=== PATIENT | male | born 1960 | race Caucasian/White ===

== ENCOUNTER 2019-09-15 20:00 | Outpatient (CLI) | payer OTHER, SELFPAY | END 2019-09-15 20:01 | disposition home or self-care (01) | LOC: SLEEP 09-16 09:32 | PROVIDERS: Family Provider Nurse Practitioner Family; Visit Provider Nurse Practitioner Family | DX: G47.33 Obstructive sleep apnea (adult) (pediatric) (principal) | CPT/HCPCS: 95810 ==

== ENCOUNTER 2019-11-26 20:00 | Outpatient (CLI) | payer MEDICARE, BC, SELFPAY | END 2019-11-26 20:01 | disposition home or self-care (01) | LOC: SLEEP 11-27 09:28 | PROVIDERS: Family Provider Nurse Practitioner Family; Visit Provider Nurse Practitioner Family | DX: G47.33 Obstructive sleep apnea (adult) (pediatric) (principal) | CPT/HCPCS: 95811 ==

== ENCOUNTER 2019-12-08 11:21 | Outpatient (CLI) | payer MEDICARE, SELFPAY ==
--- NOTE | 2019-12-08 11:33 | XR_ITS ---
WS: [id number] XR chest 2V* [id number] REASON FOR EXAM: Shortness of breath FINDINGS: Borderline cardiomegaly is noted. The lung das are well aerated. There is no pneumonia, pleural effusion, pulmonary edema, or pneumo thorax. The seventh rib shows a remote fracture similar to the previous exam of June 22, 2018. XR/XR chest 2V* [id number] IMPRESSION: Borderline cardiomegaly.
[2019-12-08 12:01] LABS: Basophils # 0.1 10^3/uL (0.0-0.1); Basophils % 0.9 %; Eosinophils # 0.3 10^3/uL (0.0-0.8); Eosinophils % 3.7 %; Hematocrit 45.8 % (42.0-52.0); Hemoglobin 14.4 g/dL (11.7-16.6); Lymphocytes # 2.3 10^3/uL (0.8-4.8); Mean Corpuscular HGB Conc 31.4 g/dL (30.0-36.0); Mean Corpuscular Hemoglobin 28.4 pg (28.0-34.0); Mean Corpuscular Volume 90.3 fL (80-94); Mean Platelet Volume 10.6 fL (7.4-10.4); Monocytes # 0.6 10^3/uL (0.2-0.9); Monocytes % 7.9 %; Neutrophils # 4.6 10^3/uL (1.8-7.7); Neutrophils % 58.4 %; Nucleated Red Blood Cells % 0 %; Platelet Count 254 10^3/cmm (130-400); Red Blood Count 5.07 10^6/uL (4.1-5.3); Red Cell Distribution Width 13.1 % (12.1-15.1); White Blood Count 7.8 10^3/uL (4.0-10.0)
[2019-12-10 17:30] LABS: Cat Dander (E1) Ige <0.10 kU/L; Cat Dander Class 0; Common Ragweed (Short) (W1) Ig <0.10 kU/L; Dog Dander (E5) Ige <0.10 kU/L; Dog Dander Class 0; Elm (T8) Ige <0.10 kU/L; Elm Class 0; English Plantain (W9) Ige <0.10 kU/L; English Plantain Class 0; Immunoglobulin E 105 kU/L (<OR=114); Immunoglobulin E 99 kU/L (<OR=114); Lamb'S Quarters (Goose Foot) <0.10 kU/L; Lamb'S Quarters Class 0; Maple (Box Elder) (T1) Ige <0.10 kU/L; Maple Class 0; Oak (T7) Ige <0.10 kU/L; Oak Class 0; Ragweeed Class 0; Rough Marsh Elder (W16) Ige <0.10 kU/L; Rough Marsh Elder Class 0
[2019-12-11 18:01] LABS: Alternaria Alternata (M6) Ige <0.10 kU/L; Alternaria Class 0; Bermuda Class 0; Bermuda Grass (G2) Ige <0.10 kU/L; D. Farinae Class 0/1; Dermatophagoides Class 0/1; Dermatophagoides Pteronyssinus 0.13 kU/L; House Dust (Greer) (H1) Ige <0.10 kU/L; House Dust (Hollister- Stier) <0.10 kU/L; House Dust Class 0; Johnson Grass (G10) Ige <0.10 kU/L; Johnson Grass Cl 0; June Grass Class 0; June Grass(Kentucky Blue) (G8) <0.10 kU/L; Meadow Fescue (G4) Ige <0.10 kU/L; Meadow Fescue Class 0; Mucor Racemosus Class 0; Orchard Grass (Cocksfoot) (G3) <0.10 kU/L; Penicillium Class 0; Penicillium Notatum (M1) Ige <0.10 kU/L; Perennial Rye Grass (G5) Ige <0.10 kU/L; Perennial Rye Grass Class 0; Sweet Vernal Class 0; Sweet Vernal Grass (G1) Ige <0.10 kU/L; Timothy Grass (G6) Ige <0.10 kU/L; Timothy Grass Class 0
[2019-12-11 19:50] LABS: Aspergillus Fumigatus, Igg Ab, 49.5 mg/L (<=102)
== END 2019-12-08 11:22 | disposition home or self-care (01) ==
LOC: RAD 11:28
PROVIDERS: PCP Nurse Practitioner Family; Visit Provider Internal Medicine Critical Care Medicine
DX: R06.02 Shortness of breath (principal); J45.909 Unspecified asthma, uncomplicated
CPT/HCPCS: 71046; 82785; 85025; 86003

== ENCOUNTER → 2020-02-04 10:41 | Outpatient (BNVA) | payer MEDICARE, BC, SELFPAY | PROVIDERS: PCP Nurse Practitioner Family; Referring Provider Dermatology; Visit Provider Dermatology | DX: D48.9 Neoplasm of uncertain behavior, unspecified (principal); D18.01 Hemangioma of skin and subcutaneous tissue; D23.30 Other benign neoplasm of skin of unspecified part of face; L73.9 Follicular disorder, unspecified | CPT/HCPCS: 11102; 88304; 88305; 99203; 99204 ==

== ENCOUNTER 2020-02-12 16:21 | Outpatient (CLI) | payer MEDICARE, BC, SELFPAY ==
[2020-02-12 16:28] LABS: Add Urine Microscopic? NO
[2020-02-12 16:36] LABS: Basophils # 0.1 10^3/uL (0.0-0.1); Basophils % 1.1 %; Eosinophils % 10.7 %; Hematocrit 44.9 % (42.0-52.0); Lymphocytes # 2.4 10^3/uL (0.8-4.8); Lymphocytes % 26.7 %; Mean Corpuscular HGB Conc 31.2 g/dL (30.0-36.0); Mean Corpuscular Volume 89.8 fL (80-94); Mean Platelet Volume 11.1 fL (7.4-10.4); Monocytes # 0.7 10^3/uL (0.2-0.9); Neutrophils # 4.72 10^3/uL (1.8-7.7); Neutrophils % 53.2 %; Nucleated Red Blood Cells % 0 %; Platelet Count 252 10^3/cmm (130-400); Red Cell Distribution Width 13.3 % (12.1-15.1); White Blood Count 8.9 10^3/uL (4.0-10.0)
[2020-02-12 17:02] LABS: Bilirubin Urine Neg (NEGATIVE); Blood Urine Neg (Negative); Glucose Urine UA Norm (Normal); Ketones Urine Negative (Negative); Leukocyte Esterase Urine Negative (Negative); Nitrate Urine Negative (Negative); Protein Urine Neg (Negative); Specific Gravity, Urine 1.005 (1.005-1.030); Urine Appearance Clear (CLEAR); Urine Color Straw (Yellow); Urobilinogen Urine Norm (Negative)
[2020-02-12 17:49] LABS: Alanine Aminotransferase 26 U/L (0-41); Albumin Level 4.7 g/dL (3.5-5.2); Alkaline Phosphatase 87 IU/L (40-130); Anion Gap 12.6 (5-19); Aspartate Amino Transferase 18 U/L (0-40); Blood Urea Nitrogen 23 mg/dL (8-23); Carbon Dioxide 28 mmol/L (22-29); Chloride 105 mmol/L (98-107); Chol HDL Ratio 2.85 mg/dL (1.0-5.00); Cholesterol 151 mg/dL (0-200); Globulin 2.7 g/dL (1.3-4.6); Glomerular Filtration Rate 114.6 mL/min (90-130); Glucose 104 mg/dL (65-115); HDL Cholesterol 53 mg/dL (60-100); LDL Cholesterol Calculated 82 mg/dL (50-129); LDL HDL Ratio 1.55 RATIO (0.00-3.22); Osmolality Calculated 289 mOsm/kg (285-295); Potassium 4.6 mmol/L (3.5-5.1); Sodium 141 mmol/L (136-145); Thyroid Stimulating Hormone 0.98 uIU/mL (0.27-4.20); Total Bilirubin 0.5 mg/dL (0.15-1.2); Total Protein 7.4 g/dL (6.6-8.7); Triglycerides 82 mg/dL (0-150)
[2020-02-12 18:21] LABS: Estmated Average Glucose 111; Hemoglobin A1C 5.5 % (4.0-6.0)
[2020-02-12 22:34] LABS: Prostate Specific Antigen 0.694 ng/mL (0-4)
== END 2020-02-12 16:22 | disposition home or self-care (01) ==
LOC: LAB 16:24
PROVIDERS: PCP Nurse Practitioner Family; Visit Provider Nurse Practitioner Family
DX: I10 Essential (primary) hypertension (principal); Z12.5 Encounter for screening for malignant neoplasm of prostate
CPT/HCPCS: 80053; 80061; 81003; 83036; 84153; 84443; 85025

== ENCOUNTER → 2020-07-26 09:05 | Outpatient (BNVA) | payer MEDICARE, SELFPAY | PROVIDERS: PCP Nurse Practitioner Family; Visit Provider Internal Medicine Rheumatology | DX: M19.90 Unspecified osteoarthritis, unspecified site (principal); Z79.899 Other long term (current) drug therapy; Z11.1 Encounter for screening for respiratory tuberculosis; Z11.59 Encounter for screening for other viral diseases; K21.9 Gastro-esophageal reflux disease without esophagitis | CPT/HCPCS: 73130; 73630; 80076; 82306; 82565; 85025; 85651; 86140; 86431; 86480; 86704; 86803; 87340; 99214 ==

== ENCOUNTER 2020-07-26 10:26 | Outpatient (CLI) | payer MEDICARE, SELFPAY ==
--- NOTE | 2020-07-26 10:36 | XR_ITS ---
WS: [id number] LEFT FOOT: 3 VIEW(S) TECHNIQUE: AP, oblique and lateral. HISTORY: Z79.899 - Other fdc (current) drug therapy COMPARISON: None available. No acute fracture or dislocation. Small hooklike osteophytes at the distal first phalanx. Normal tarsal/metatarsal alignment. No soft tissue abnormality or bone destruction. No erosions. Enthesopathy at the Achilles tendon. XR/XR foot LT min 3V* [id number] IMPRESSION: No significant osteoarthritic changes. No erosions.
--- NOTE | 2020-07-26 10:36 | XR_ITS ---
WS: [id number] LEFT HAND: 3 VIEW(S) TECHNIQUE: PA, oblique and lateral. HISTORY: Z79.899 - Other skilled nursing (current) drug therapy COMPARISON: 04/10/2016 No acute fracture or dislocation. Hypertrophic bone formation and hooklike osteophytes especially involving the third and fourth metaca rpal heads. No erosions. Mild interphalangeal joint space narrowing throughout. There are small well- corticated osseous densities adjacent to the trapezium which are probably from old trauma. Soft tissu e foreign body in the thenar eminence. These findings are unchanged. XR/XR hand LT min 3V* [id number] IMPRESSION: 1. Changes involving the third and fourth metacarpal heads can be seen with he machromatosis and CPPD. 2. Mild osteoarthritis.
--- NOTE | 2020-07-26 10:36 | XR_ITS ---
WS: [id number] RIGHT HAND: 3 VIEW(S) TECHNIQUE: PA, oblique and lateral. HISTORY: Z79.899 - Other long term care social worker (current) drug therapy COMPARISON: 04/10/2016 No acute fracture or dislocation. Hypertrophic bone formation involving the metacarpal heads, greatest involving the third and fourth m etacarpals. Hooklike osteophytes along the lateral side of the third and fourth metacarpals. Mild int erphalangeal joint space narrowing. No erosions. No progression since the prior study. No soft tissue edema. XR/XR hand RT min 3V* [id number] IMPRESSION: 1. Changes involving the third and fourth metacarpal heads can be seen with he machromatosis and CPPD. 2. Mild osteoarthritis at the interphalangeal joints.
--- NOTE | 2020-07-26 10:36 | XRR_ITS ---
PROCEDURE INFORMATION: Exam: XR Right Foot Complete Exam date and time: 07/26/2020 11:11 AM Age: 59 years old Clinical indication: Screening exam; Other group home (current) drug therapy; Additional info: Z79.899 - other group home (current) drug therapy TECHNIQUE: Imaging protocol: XR Right foot. Views: 3 or more views. COMPARISON: No relevant prior studies available. FINDINGS: Bones/joints: Hindfoot-midfoot and midfoot-forefoot articulations normal. Metatarsals and phalanges without an acute process. Subtalar and tibiotalar joint normal. Mild degenerative changes at the first metatarsal phalangeal joint. Mild soft tissue swelling about the joint space medially. Mild degenerative changes at the midfoot forefoot articulation. Degenerative changes within the cuboid. Spur formation at the insertion of the Achilles' tendon and plantar aponeurosis. Soft tissues: Normal. XR/XR foot RT min 3V* [id number] IMPRESSION: Spur formation at the insertion of the Achilles' tendon and plantar aponeurosis. Degenerative changes. See above.
[2020-07-26 11:34] LABS: Basophils # 0.1 10^3/uL (0.0-0.1); Basophils % 0.9 %; Eosinophils # 0.1 10^3/uL (0.0-0.8); Eosinophils % 1.6 %; Hematocrit 44.9 % (42.0-52.0); Hemoglobin 14.4 g/dL (11.7-16.6); Lymphocytes # 1.9 10^3/uL (0.8-4.8); Lymphocytes % 23.5 %; Mean Corpuscular HGB Conc 32.1 g/dL (30.0-36.0); Mean Corpuscular Hemoglobin 28.7 pg (28.0-34.0); Mean Corpuscular Volume 89.6 fL (80-94); Mean Platelet Volume 10.7 fL (7.4-10.4); Monocytes # 0.7 10^3/uL (0.2-0.9); Monocytes % 8.7 %; Neutrophils # 5.34 10^3/uL (1.8-7.7); Neutrophils % 65.1 %; Nucleated Red Blood Cells % 0 %; Platelet Count 242 10^3/cmm (130-400); Red Blood Count 5.01 10^6/uL (4.1-5.3); Red Cell Distribution Width 13.1 % (12.1-15.1); White Blood Count 8.2 10^3/uL (4.0-10.0)
[2020-07-26 11:51] LABS: Alanine Aminotransferase 27 U/L (0-41); Albumin Level 4.5 g/dL (3.5-5.2); Alkaline Phosphatase 95 IU/L (40-130); Aspartate Amino Transferase 20 U/L (0-40); C Reactive Protein 8.9 mg/L (0.0-4.9); Globulin 3.3 g/dL (1.3-4.6); Total Bilirubin 0.6 mg/dL (0.15-1.2); Total Protein 7.8 g/dL (6.6-8.7)
[2020-07-26 12:14] LABS: Hepatitis B Core AB, Total Non-Reactive (Nonreactive); Hepatitis B Surface Antigen Non-Reactive (Nonreactive); Hepatitis C Virus Antibody Non-Reactive (Nonreactive)
[2020-07-26 12:22] LABS: Erythrocyte Sedimentation Rate 22 mm/hr (0-10)
[2020-07-26 12:57] LABS: 25 Hydroxy Vitamin D 30 ng/mL (30-100)
[2020-07-27 12:58] LABS: Cyclic Citrullinated Peptide <16 UNITS
[2020-07-28 13:29] LABS: Quantiferon Mitogen >10.00 IU/mL; Quantiferon Nil 0.02 IU/mL; Quantiferon Plus TB2 <0.00 IU/mL; Quantiferon TB Gold NEGATIVE (NEGATIVE)
== END 2020-07-26 10:27 | disposition home or self-care (01) ==
PROVIDERS: PCP Nurse Practitioner Family; Visit Provider Internal Medicine Rheumatology
DX: Z79.899 Other long term (current) drug therapy (principal); M19.90 Unspecified osteoarthritis, unspecified site
CPT/HCPCS: 73130; 73630; 80076; 82306; 82565; 85025; 85651; 86140; 86431; 86480; 86704; 86803; 87340

== ENCOUNTER → 2020-10-28 12:23 | Outpatient (BNVA) | payer MEDICARE, SELFPAY | PROVIDERS: PCP Nurse Practitioner Family; Visit Provider Internal Medicine Rheumatology | DX: M19.90 Unspecified osteoarthritis, unspecified site (principal); Z79.899 Other long term (current) drug therapy; Z79.1 Long term (current) use of non-steroidal anti-inflammatories (NSAID) | CPT/HCPCS: 99214 ==

== ENCOUNTER → 2021-01-24 12:39 | Outpatient (BNVA) | payer MEDICARE, SELFPAY | PROVIDERS: PCP Nurse Practitioner Family; Visit Provider Internal Medicine Rheumatology | DX: M19.90 Unspecified osteoarthritis, unspecified site (principal); Z79.899 Other long term (current) drug therapy; E83.119 Hemochromatosis, unspecified | CPT/HCPCS: 36415; 80076; 82565; 83540; 83550; 85025; 86140 ==

== ENCOUNTER 2021-03-09 08:53 | Outpatient (CLI) | payer MEDICARE, SELFPAY ==
--- NOTE | 2021-03-09 09:14 | XR_ITS ---
WS: [id number] PROCEDURE: XR chest 2V* [id number] CLINICAL INFORMATION: DYSPNEA, WHEEZING COMPARISON: December 08, 2019 FINDINGS: Heart: Cardiomegaly. Lungs: Lungs are clear. No consolidation or pleural fluid. No acute pulmonary infiltrates. Bones: Right rotator cuff anchor. Stable chronic right rib fractures. XR/XR chest 2V* [id number] IMPRESSION: Cardiomegaly. No acute pulmonary infiltrates.
== END 2021-03-09 08:54 | disposition home or self-care (01) ==
PROVIDERS: PCP Nurse Practitioner Family; Visit Provider Nurse Practitioner Family
DX: R06.00 Dyspnea, unspecified (principal); R06.2 Wheezing; I51.7 Cardiomegaly
CPT/HCPCS: 71046

== ENCOUNTER 2021-04-11 10:45 | Outpatient (CLI) | payer MEDICARE, SELFPAY ==
--- NOTE | 2021-04-11 10:54 | XR_ITS ---
WS: [id number] RIGHT KNEE: 3 VIEW(S) TECHNIQUE: AP, oblique(s) and lateral. HISTORY: RIGHT KNEE PAIN COMPARISON: 04/10/2016 No fracture or dislocation. Mild joint space narrowing. Small osteophytes the tibial spines. There is a moderate-sized suprapatellar joint effusion. No soft tissue abnormality. XR/XR knee RT 3V* [id number] IMPRESSION: 1. Moderate-sized suprapatellar joint effusion. 2. Mild joint space narrowing.
--- NOTE | 2021-04-11 10:54 | XR_ITS ---
WS: [id number] Bilateral upright AP knees. HISTORY: Chronic knee pain, greatest on the RIGHT. COMPARISON: 07/11/2015 and 04/03/2017 Mild narrowing of the medial compartments bilaterally. Small osteophytes at the tibial spines. XR/[place] [id number] IMPRESSION: Mild medial compartment joint space narrowing.
== END 2021-04-11 10:46 | disposition home or self-care (01) ==
PROVIDERS: PCP Nurse Practitioner Family; Visit Provider Nurse Practitioner Family
DX: M25.561 Pain in right knee (principal); M25.461 Effusion, right knee
CPT/HCPCS: 73562; 73565

== ENCOUNTER → 2021-05-04 11:16 | Outpatient (BNVA) | payer MEDICARE, SELFPAY | PROVIDERS: PCP Nurse Practitioner Family; Visit Provider Internal Medicine Rheumatology | DX: M06.041 Rheumatoid arthritis without rheumatoid factor, right hand (principal); M06.042 Rheumatoid arthritis without rheumatoid factor, left hand; Z79.899 Other long term (current) drug therapy; M25.569 Pain in unspecified knee; Z79.52 Long term (current) use of systemic steroids; Z71.85 Encounter for immunization safety counseling | CPT/HCPCS: 99214 ==

== ENCOUNTER 2021-05-05 11:12 | Outpatient (CLI) | payer MEDICARE, SELFPAY ==
--- NOTE | 2021-05-05 12:12 | USCV_ITS ---
Timmy Reyes Age: 60 Gender: M : 1960 Exam Date: 05/05/2021 12:27 Ordering Phys: Lucia Cobian NP Technologist: Tirso Hernandez [place] [facility] [place] MILD INTERMITTENT ASTHMA WITH ACUTE EXACERBATION BP: 122 / 77 HR: 65 Rhythm: Sinus Technical Quality: Adequate MEASUREMENTS (Male / Female) Normal Values 2D ECHO LV Diastolic Diameter PLAX 5.0 cm 4.2 - 5.9 / 3.9 - 5.3 cm LV Systolic Diameter PLAX 3.3 cm IVS Diastolic Thickness 0.7 cm 0.6 - 1.0 / 0.6 - 0.9 cm IVS Systolic Thickness 1.1 cm LVPW Diastolic Thickness 1.5 cm 0.6 - 1.0 / 0.6 - 0.9 cm LVPW Systolic Thickness 2.2 cm LVOT Diameter 2.0 cm LV Ejection Fraction 2D Teich 61.1 % LV Ejection Fraction MOD 2C 58.2 % LV Ejection Fraction 2C AL 56.7 % LA Diameter 4.0 cm LA Width 4.0 cm LA Height 4.7 cm RA Width 3.3 cm RA Height 5.4 cm Aorta at Sinotubular Diameter 2.7 cm DOPPLER AV Peak Velocity 123.0 cm/s LVOT Peak Velocity 90.0 cm/s AV Area Cont Eq vti 2.4 cm squared AV Area Cont Eq pk 2.4 cm squared MV Area PHT 3.5 cm squared Mitral E to A Ratio 0.9 MV E' Velocity 28.0 cm/s Mitral E to MV E' Ratio 10.6 Mitral E to LV E' Lateral Ratio 10.4 Mitral E to LV E' Septal Ratio 11.1 Right Atrial Pressure 3.0 mmHg RV Acceleration Time 0.1 s RV Ejection Time 0.3 s RV AcT/ET 0.4 FINDINGS Left Ventricle Normal left ventricular size and systolic function, EF 61 %. Grade I/IV diastolic dysfunction (abnormal relaxation filling pattern), normal to mildly elevated filling pressures. Right Ventricle The right ventricle is normal in size and function. Right Atrium The right atrium is normal in size. Left Atrium Mildly increased left atrial size. Mitral Valve No gross abnormalities noted Aortic Valve Thickened aortic valve. Tricuspid Valve No gross abnormalities noted Pulmonic Valve No gross abnormalities noted Pericardium Normal pericardium without effusion. Aorta Normal ascending aorta dimension. CONCLUSIONS Normal left ventricular size and systolic function, EF 61 %. Grade I/IV diastolic dysfunction (abnormal relaxation filling pattern), normal to mildly elevated filling pressures. Mild left ventricular hypertrophy Mildly dilated left atrium Thickened aortic valve. There is no pericardial effusion. There are no intracardiac masses. Normal cardiac chamber sizes compared to the study from 12/18/2016, there may not be of any good change Dr Michael Yeung MD FACC (Electronically Signed) Final Date: 05 May 2021 22:01 S
[2021-05-05 13:28] LABS: Basophils # 0.1 10^3/uL (0.0-0.1); Eosinophils # 0.4 10^3/uL (0.0-0.8); Eosinophils % 3.8 %; Hematocrit 44.9 % (42.0-52.0); Hemoglobin 14.4 g/dL (11.7-16.6); Lymphocytes # 1.9 10^3/uL (0.8-4.8); Lymphocytes % 16.4 %; Mean Corpuscular HGB Conc 32.1 g/dL (30.0-36.0); Mean Corpuscular Hemoglobin 28.7 pg (28.0-34.0); Mean Corpuscular Volume 89.4 fl (80-94); Monocytes # 1.2 10^3/uL (0.2-0.9); Monocytes % 10.4 %; Neutrophils % 68.1 %; Nucleated Red Blood Cells % 0 %; Platelet Count 259 10^3/cmm (130-400); Red Blood Count 5.02 10^6/uL (4.1-5.3); Red Cell Distribution Width 13.8 % (12.1-15.1); White Blood Count 11.5 10^3/uL (4.0-10.0)
[2021-05-05 14:22] LABS: Alanine Aminotransferase 32 U/L (0-41); Albumin Level 4.4 g/dL (3.5-5.2); Alkaline Phosphatase 89 IU/L (40-130); Aspartate Amino Transferase 25 U/L (0-40); C Reactive Protein 10.1 mg/L (0.0-4.9); Globulin 3.4 g/dL (1.3-4.6); Glomerular Filtration Rate 114.3 mL/min (90-130); Total Bilirubin 0.4 mg/dL (0.15-1.2); Total Protein 7.8 g/dL (6.6-8.7)
== END 2021-05-05 11:13 | disposition home or self-care (01) ==
PROVIDERS: PCP Nurse Practitioner Family; Referring Provider Internal Medicine Rheumatology; Visit Provider Nurse Practitioner Family
DX: M19.90 Unspecified osteoarthritis, unspecified site (principal); Z79.899 Other long term (current) drug therapy; J45.20 Mild intermittent asthma, uncomplicated; I35.8 Other nonrheumatic aortic valve disorders
CPT/HCPCS: 80076; 82565; 85025; 86140; 93306

== ENCOUNTER 2021-07-12 10:02 | Outpatient (CLI) | payer MEDICARE, SELFPAY ==
--- NOTE | 2021-07-12 | MR_ITS ---
WS: [id number] MRI RIGHT KNEE NONCONTRAST TECHNIQUE: Axial PD, coronal PD fat sat, coronal PD, sagittal PD, and sagittal PD fat-sat images obta ined. CLINICAL INFORMATION: PAIN IN RIGHT KNEE COMPARISON: None. FINDINGS: Distal quadriceps and patella tendons are intact. ACL and PCL are intact. Small joint effusion. Parti ally visualized T2 hyperintense lesion in the proximal tibial diaphysis likely enchondroma. Advanced narrowing of the medial joint compartment with advanced chondromalacia. Edema in the underlying tibia l plateau and femoral condyle. Fluid and edema deep to the MCL consistent with grade 1-2 injury. MCL appears grossly intact. Normal lateral collateral ligament. Moderate chondromalacia patella. No subchondral edema. Normal medial and lateral patellar retinaculum . Normal popliteal fossa. Small lobular popliteal cyst measuring 3.0 x 0.9 cm cranial caudal by AP. MR/MR knee RT wo con* [id number] IMPRESSION: 1. ACL and PCL are intact. Small joint effusion. 2. Advanced joint space narrowing medial joint compartment with advanced chond romalacia and near [id number] articulation. Associated subchondral cystic rimma nge and edema. 3. Chronic thinning of the medial meniscus with chronic appearing meniscal tea r. Chronic thinning of the lateral meniscus. 4. Moderate chondromalacia patella. 5. Small lobulated popliteal cyst measuring 3.0 x 0.9 cm cranial caudal x AP. 6. Grade 1-2 injury medial collateral ligament with a small amount of fluid an d edema deep to the MCL. Outbridge grading: grade IV: full-thickness cartilage loss with underlying bone reactive changes
== END 2021-07-12 10:03 | disposition home or self-care (01) ==
PROVIDERS: Visit Provider Nurse Practitioner Family
DX: M25.461 Effusion, right knee (principal); M22.41 Chondromalacia patellae, right knee; M71.21 Synovial cyst of popliteal space [Baker], right knee; R60.0 Localized edema
CPT/HCPCS: 73721

== ENCOUNTER → 2021-09-05 09:25 | Outpatient (BNVA) | payer MEDICARE, SELFPAY | PROVIDERS: Visit Provider Internal Medicine Critical Care Medicine | DX: J45.909 Unspecified asthma, uncomplicated (principal); R06.6 Hiccough; E66.01 Morbid (severe) obesity due to excess calories; M17.11 Unilateral primary osteoarthritis, right knee; K21.9 Gastro-esophageal reflux disease without esophagitis; E78.5 Hyperlipidemia, unspecified; G47.33 Obstructive sleep apnea (adult) (pediatric) | CPT/HCPCS: 99214 ==

== ENCOUNTER → 2021-09-14 14:43 | Outpatient (BNVA) | payer MEDICARE, SELFPAY | PROVIDERS: Referring Provider Nurse Practitioner Family; Visit Provider Specialist | DX: M25.561 Pain in right knee (principal); M25.562 Pain in left knee; M17.11 Unilateral primary osteoarthritis, right knee | CPT/HCPCS: 73560; 73565 ==

== ENCOUNTER → 2021-10-05 10:39 | Outpatient (BNVA) | payer MEDICARE, SELFPAY | PROVIDERS: Visit Provider Specialist | DX: M17.11 Unilateral primary osteoarthritis, right knee (principal) | CPT/HCPCS: 20610; J7325 ==

== ENCOUNTER → 2022-01-02 09:49 | Outpatient (BNVA) | payer MEDICARE, SELFPAY | PROVIDERS: Visit Provider Internal Medicine Rheumatology | DX: M06.041 Rheumatoid arthritis without rheumatoid factor, right hand (principal); M06.042 Rheumatoid arthritis without rheumatoid factor, left hand; M17.0 Bilateral primary osteoarthritis of knee; Z79.899 Other long term (current) drug therapy; Z79.52 Long term (current) use of systemic steroids; Z71.85 Encounter for immunization safety counseling | CPT/HCPCS: 36415; 80076; 82565; 85025; 86140; 99214 ==

== ENCOUNTER → 2022-03-01 09:15 | Outpatient (BNVA) | payer MEDICARE, SELFPAY | PROVIDERS: PCP Nurse Practitioner Family; Visit Provider Internal Medicine Critical Care Medicine | DX: J45.909 Unspecified asthma, uncomplicated (principal); R06.6 Hiccough; G47.30 Sleep apnea, unspecified; E66.01 Morbid (severe) obesity due to excess calories; M17.11 Unilateral primary osteoarthritis, right knee; R06.02 Shortness of breath; J82.83 Eosinophilic asthma; Z68.41 Body mass index [BMI] 40.0-44.9, adult | CPT/HCPCS: 99214 ==

== ENCOUNTER 2022-03-08 07:22 | Outpatient (CLI) | payer MEDICARE, SELFPAY ==
[2022-03-08 08:12] VITALS: BMI 43.4
--- NOTE | 2022-03-08 08:13 | NMCV_ITS ---
NM ron perf SPECT r/s* [id number] Timmy Reyes Age: 61 Gender: M : 1960 Exam Date: 03/08/2022 08:13 Ordering Phys: David Durant MD Technologist: BRUCE Brown Exam Location: [facility] Indications: SHORTNESS OF BREATH STRESS TEST Please see separate stress test report in [facility] for full findings IMAGE PROTOCOL Rest/Stress 1 Lexiscan Day Radiopharmaceutical Dose (mCi) Administration Site Administered by Rest: Tc-99m 10.8 IV BRUCE Gonzalez Sestamibi Stress:Tc-99m 32.7 IV BRUCE Gonzalez Sestamibi Rest: 08-Mar-2022 60 Discovery 630 Stress: 08-Mar-2022 30 Discovery 630 0.4mg Lexiscan. Supine position only as patient was unable to lay prone. SPECT RESULTS Technical Quality: Excellent Raw Data Analysis: Normal Image Corrections: No attenuation or motion correction applied Summed Stress Score: 6 Summed Rest Score: 10 Summed Difference Score: 0 PERFUSION FINDINGS Medium sized perfusion abnormality of basal to mid inferolateral, apical lateral, mid to apical inferior and apical tinajero on rest images with improved tracer uptake in inferolateral and inferior tinajero on stress images FUNCTIONAL RESULTS (calculated via Gated SPECT) Stress Image LV EF (%): 54 Stress EDV (mL):168 TID: 0.88 Stress ESV (mL):78 FUNCTIONAL FINDINGS: The left ventricle is normal in size. Transient Ischemia Dilatation of 0.88. There is normal left ventricular systolic function. The left ventricular ejection fraction is normal with a value of 54%. There is normal left ventricular wall thickening. IMPRESSIONS 1. Medium sized paradoxical perfusion abnormality of basal to mid inferolateral, apical lateral, mid to apical inferior and apical tinajero. This likely represents attenuation artifact. 2. Overall left ventricular systolic function is normal without regional wall motion abnormalities, LVEF=54%. 3. No coronary ischemia based on the study. 4. No EKG changes with Lexiscan infusion. Refer to separate report for details. Sandra Hayes MD (Electronically Signed) Final Date: 09 March 2022 08:22 S
--- NOTE | 2022-03-08 08:13 | ECG_ITS ---
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 Interpretive Statements NAME OF STUDY: LEXISCAN SESTAMIBI STRESS TEST INDICATION: Chest Pain PROCEDURE: At the baseline, the blood pressure was 164/94 mmHg, oxygen saturation 95% with a heart rate of 60 bpm. The electrocardiogram showed sinus bradycardia, normal axis with normal ST and T's. The Lexiscan was infused over a period of 20 seconds. A total of 0.4 milligrams of Lexiscan was infused. The stress phase was continued for a total of 5 minutes. Heart rate at the end of the stress phase was 75 bpm, oxygen saturation 96% with a blood pressure of 137/77 mmHg. The EKG at the peak infusion revealed sinus rhythm with no significant ST-T wave changes. Sestamibi was injected 20 seconds after the Lexiscan infusion. Blood pressure at the end of the recovery phase was 131/78 mmHg, oxygen saturation 94% with a heart rate of 63 beats per minute. CONCLUSION: 1. No significant EKG changes with the LexiScan infusion. 2. No LexiScan induced chest pain or cardiac arrhythmia. 3. Normal blood pressure and heart rate response. 4. Sestamibi/sestamibi perfusion scan pending; see separate report. Electronically Signed On 03-09-2022 8:01:47 CDT by Sandra Hayes M.D. [email or web address]
== END 2022-03-08 07:23 | disposition home or self-care (01) ==
PROVIDERS: PCP Nurse Practitioner Family; Visit Provider Internal Medicine Critical Care Medicine
DX: R06.02 Shortness of breath (principal); R07.9 Chest pain, unspecified
CPT/HCPCS: 78452; A9500

== ENCOUNTER → 2022-04-17 10:23 | Outpatient (BNVA) | payer MEDICARE, SELFPAY | PROVIDERS: PCP Nurse Practitioner Family; Visit Provider Internal Medicine Rheumatology | DX: M06.042 Rheumatoid arthritis without rheumatoid factor, left hand (principal); M06.041 Rheumatoid arthritis without rheumatoid factor, right hand; Z79.899 Other long term (current) drug therapy; M54.12 Radiculopathy, cervical region; Z71.85 Encounter for immunization safety counseling; Z79.1 Long term (current) use of non-steroidal anti-inflammatories (NSAID) | CPT/HCPCS: 36415; 80076; 82565; 85025; 86140; 99214 ==

== ENCOUNTER → 2022-08-16 12:13 | Outpatient (BNVA) | payer MEDICARE, SELFPAY | PROVIDERS: PCP Nurse Practitioner Family; Visit Provider Internal Medicine Rheumatology | DX: M06.041 Rheumatoid arthritis without rheumatoid factor, right hand (principal); M06.042 Rheumatoid arthritis without rheumatoid factor, left hand; Z79.899 Other long term (current) drug therapy; Z71.85 Encounter for immunization safety counseling; M54.12 Radiculopathy, cervical region | CPT/HCPCS: 36415; 80076; 82565; 85025; 86140; 99214 ==

== ENCOUNTER → 2022-08-31 09:59 | Outpatient (BNVA) | payer MEDICARE, SELFPAY | PROVIDERS: PCP Nurse Practitioner Family; Visit Provider Internal Medicine Pulmonary Disease | DX: J45.909 Unspecified asthma, uncomplicated (principal); R06.02 Shortness of breath; R06.6 Hiccough; G47.30 Sleep apnea, unspecified; E66.01 Morbid (severe) obesity due to excess calories; M17.11 Unilateral primary osteoarthritis, right knee; J82.83 Eosinophilic asthma; Z68.41 Body mass index [BMI] 40.0-44.9, adult | CPT/HCPCS: 99214 ==

== ENCOUNTER → 2022-11-22 12:46 | Outpatient (BNVA) | payer MEDICARE, SELFPAY | PROVIDERS: PCP Nurse Practitioner Family; Visit Provider Internal Medicine Rheumatology | DX: M06.042 Rheumatoid arthritis without rheumatoid factor, left hand (principal); M06.041 Rheumatoid arthritis without rheumatoid factor, right hand; Z71.85 Encounter for immunization safety counseling; Z79.899 Other long term (current) drug therapy; M54.12 Radiculopathy, cervical region | CPT/HCPCS: 80076; 82565; 85025; 86140; 99214 ==

== ENCOUNTER → 2023-02-14 13:38 | Outpatient (BNVA) | payer MEDICARE, SELFPAY | PROVIDERS: PCP Nurse Practitioner Family; Visit Provider Internal Medicine Rheumatology | DX: Z79.899 Other long term (current) drug therapy (principal); M06.041 Rheumatoid arthritis without rheumatoid factor, right hand; M06.042 Rheumatoid arthritis without rheumatoid factor, left hand; Z71.85 Encounter for immunization safety counseling; M54.12 Radiculopathy, cervical region | CPT/HCPCS: 99214 ==

== ENCOUNTER → 2023-03-07 10:12 | Outpatient (BNVA) | payer MEDICARE, SELFPAY | PROVIDERS: PCP Nurse Practitioner Family; Visit Provider Internal Medicine Pulmonary Disease | DX: J45.909 Unspecified asthma, uncomplicated (principal); R06.6 Hiccough; G47.30 Sleep apnea, unspecified; E66.01 Morbid (severe) obesity due to excess calories; M17.11 Unilateral primary osteoarthritis, right knee; J82.83 Eosinophilic asthma; G57.30 Lesion of lateral popliteal nerve, unspecified lower limb; Z68.41 Body mass index [BMI] 40.0-44.9, adult; Z77.22 Contact with and (suspected) exposure to environmental tobacco smoke (acute) (chronic) | CPT/HCPCS: 99214 ==

== ENCOUNTER → 2023-06-13 10:17 | Outpatient (BNVA) | payer MEDICARE, SELFPAY | PROVIDERS: PCP Nurse Practitioner Family; Visit Provider Internal Medicine Rheumatology | DX: Z79.899 Other long term (current) drug therapy (principal); M06.041 Rheumatoid arthritis without rheumatoid factor, right hand; M06.042 Rheumatoid arthritis without rheumatoid factor, left hand; Z71.85 Encounter for immunization safety counseling; M54.12 Radiculopathy, cervical region | CPT/HCPCS: 36415; 80076; 82565; 85025; 86140; 99214 ==

== ENCOUNTER → 2023-09-05 09:35 | Outpatient (BNVA) | payer MEDICARE, SELFPAY | PROVIDERS: PCP Nurse Practitioner Family; Visit Provider Internal Medicine Pulmonary Disease | DX: J45.40 Moderate persistent asthma, uncomplicated (principal); R06.6 Hiccough; G47.30 Sleep apnea, unspecified; E66.01 Morbid (severe) obesity due to excess calories; Z68.39 Body mass index [BMI] 39.0-39.9, adult; M17.11 Unilateral primary osteoarthritis, right knee; R06.02 Shortness of breath | CPT/HCPCS: 99214 ==

== ENCOUNTER 2024-01-21 09:58 | Outpatient (CLI) | payer MEDICARE, SELFPAY ==
[2024-01-21 10:57] LABS: Basophils # 0.1 10^3/uL (0.0-0.1); Basophils % 1.1 %; Eosinophils # 0.4 10^3/uL (0.0-0.8); Eosinophils % 6.3 %; Hematocrit 40.4 % (37-53); Lymphocytes # 1.7 10^3/uL (0.8-4.8); Mean Corpuscular HGB Conc 32.7 g/dL (30-55); Mean Corpuscular Hemoglobin 31.2 pg (27-33); Mean Corpuscular Volume 95.5 fl (82-101); Mean Platelet Volume 11.1 fL (7.4-10.4); Monocytes % 14.5 %; Neutrophils # 3.38 10^3/uL (1.8-7.7); Neutrophils % 51.8 %; Nucleated Red Blood Cells % 0 %; Platelet Count 211 10^3/cmm (157-399); Red Blood Count 4.23 10^6/uL (3.85-5.65); Red Cell Distribution Width 13.3 % (12.1-15.1); White Blood Count 6.53 10^3/uL (3.29-11.43)
[2024-01-21 11:01] LABS: Erythrocyte Sedimentation Rate 3 mm/hr (0-10)
[2024-01-21 11:14] LABS: Alanine Aminotransferase 26 U/L (0-41); Albumin Level 4.4 g/dL (3.5-5.2); Alkaline Phosphatase 89 U/L (40-130); Aspartate Amino Transferase 22 U/L (0-40); C Reactive Protein 4.7 mg/L (0.0-4.9); Total Bilirubin 0.3 mg/dL (0.15-1.2); Total Protein 7.4 g/dL (6.6-8.7)
== END 2024-01-21 09:59 | disposition home or self-care (01) ==
LOC: LAB 10:00
PROVIDERS: PCP Nurse Practitioner Family; Visit Provider Internal Medicine Rheumatology
DX: M06.041 Rheumatoid arthritis without rheumatoid factor, right hand (principal); M06.042 Rheumatoid arthritis without rheumatoid factor, left hand; Z79.899 Other long term (current) drug therapy
CPT/HCPCS: 36415; 80076; 82565; 85025; 85651; 86140